=== PATIENT | female | born 1965 | race Caucasian/White ===

== ENCOUNTER 2018-07-18 15:21 | Outpatient (CLI) | payer MEDICARE, OTHER ==
[2015-12-31 14:50] VITALS: BP 140/58
--- NOTE | 2018-07-20 15:13 | OP Clinic Progress Note ---
REASON FOR VISIT: This 52-year-old female is seen accompanied by a male associate counsel. She has had left-sided otitis externa that I have debrided, cleaned, and treated in the office in the recent past. She has developed pain and discomfort on the right side. She clearly has an otitis externa. Under the microscope, I debrided, cleaned, and suctioned and also used 91% alcohol. There is no hole in the eardrum. PLAN: I have given her a week of Septra DS 1 b.i.d. She will use some alcohol drops. I will recheck it in 2 weeks. If the ear needs to get re-cleaned before then, she is welcome to call the office. cc: Dr. Aimee GREENWOOD
== END 2018-07-18 15:22 ==
LOC: ENT 15:21
PROVIDERS: ATTEND Otolaryngology
DX: H60.91 Unspecified otitis externa, right ear (principal)
CPT/HCPCS: 69210; G0463

== ENCOUNTER 2018-08-24 18:09 | Emergency (ER) | payer MEDICARE, OTHER ==
--- NOTE | 2018-08-24 18:25 | ED Physician Documentation ---
General Adult - HISTORIAN Historian: patient - HPI Stated Complaint: abscess Chief Complaint: General Adult Onset: days ago Timing: still present Severity: moderate Further Comments: yes (Pt is a 52 yo female with lump in her axilla. Pt has had blood clots years ago, she says, and was on coumadin for 12 years and then quit it. The swollen area is tender, and had been burning, she says. Pt has had no sob, numbness in arm or other sx.) - ROS CONST: no problems EYES/ENT: none CVS/RESP: none GI/: none MS/SKIN/LYMPH: other (lump in L axilla) - PAST HX Past History: other (blood clots, "hole in heart," bipolar d/o, thyroid d/o, HTN, DM) Allergies/Adverse Reactions: Allergies Allergy/AdvReac Type Severity Reaction Status Date / Time Latex, Natural Rubber Allergy Verified 08/24/18 18:35 Home Medications: Ambulatory Orders Medication Instructions Recorded Aripiprazole [Abilify] 5 mg PO D 04/02/13 Ezetimibe/Simvastatin [Vytorin 1 tab PO D 04/02/13 10-40 mg Tablet] Lisinopril [Prinivil] 20 mg PO D 04/02/13 Metoprolol Succinate 25 mg PO D 04/02/13 Diazepam [Valium] 5 mg PO D 05/22/13 Insulin Regular, Human [Novolin R] 86 unit SQ AM 05/22/13 Levothyroxine Sodium [Levothroid] 50 mcg PO D 05/22/13 Trazodone HCl [Desyrel] 100 mg PO DAILY 05/22/13 Metformin HCl ER [Glucophage XR] 1,000 mg PO BID 01/28/14 Pregabalin [Lyrica] 200 mg PO TID 01/28/14 Aspirin [Kyle] 81 mg PO QD 04/20/14 Cholecalciferol [Vitamin D] 1,000 unit PO QD 04/20/14 Docusate Sodium [Colace] 100 mg PO QD 04/20/14 Ibuprofen [Advil] 800 mg PO TID PRN 04/20/14 Levothyroxine Sodium [Unithroid] 200 mcg PO D 04/20/14 Methocarbamol [Robaxin] 500 - 1,000 mg PO BID 04/20/14 [place]-3S/Dha/Epa/Fish Oil [[place]-3 1 each PO D 04/20/14 Iq Children's Chewable] Insulin Regular, Human [Humulin R] 34 units SQ PM 07/17/14 Insulin Regular, Human [Humulin R] 60 units SQ HS 07/17/14 Meclizine HCl [Antivert] 25 mg PO TID #30 tablet 07/17/14 guaiFENesin/CODEINE PHOS 5ML 5 ml PO Q4H PRN #8 oz 12/31/15 [Robitussin AC] - SOCIAL HX Smoking History: non-smoker - FAMILY HX Family History: No - VITAL SIGNS Vital Signs: Vital Signs Temp Pulse Resp BP Pulse Ox 140/58 12/31/15 15:08 - REVIEWED ASSESSMENTS Nursing Assessment Reviewed: Yes Vitals Reviewed: Yes Progress - Progress Progress: Rx Augmentin (875/125). Take one by mouth every 12 hours for 10 days. f/u pcp for possible u/s if sx not improving next week. General Adult Physical Exam - PHYSICAL EXAM GENERAL APPEARANCE: no distress EENT: pharynx normal NECK: normal inspection, supple RESPIRATORY: no resp distress, chest non-tender, breath sounds normal CVS: reg rate & rhythm, heart sounds normal BACK: normal inspection SKIN: other (small, 2 cm superficial swelling in L axilla. ? lymph node, vs abscess, vs small superficial thrombus) EXTREMITIES: non-tender, normal range of motion, no evidence of injury, no edema NEURO: oriented X3, motor nml, sensation nml Discharge Clincal Impression: small superficial swelling L axilla Referrals: Aimee Terrazas MD [Primary Care Provider] - Disposition: 01 HOME, SELF-CARE Decision to Admit: NO Decision Time: 18:55
[2018-08-24 18:35] VITALS: BP 143/52
== END 2018-08-24 18:37 | disposition home or self-care (01) ==
LOC: ED 18:09
DX: R60.0 Localized edema (principal)
CPT/HCPCS: 99283